=== PATIENT | male | born 1995 | race African-American/Black ===

== ENCOUNTER 2017-06-05 11:54 | Emergency (ER) | payer SELFPAY ==
[2017-06-05 12:00] VITALS: BP 149/79; PULSE 97; TEMP 98; BMI 28.1
[2017-06-05] MEDS ORDERED: CYCLOBENZAPRINE HCL 10 MG TABLET (FP) PO ONE (12:53)
[2017-06-05] MEDS ORDERED: KETOROLAC TROMETHAMINE 60 MG/2 ML VIAL IM ONE (12:53)
--- NOTE | 2017-06-05 12:54 | PDOC ---
History of Present Illness - General Chief Complaint: Back Pain Stated Complaint: BACK PAIN Time Seen by Provider: 06/05/17 12:14 History Source: Patient Exam Limitations: No Limitations - History of Present Illness Initial Comments: 06/05/17 13:05 Patient is a 22-year-old male with no past medical history presents to the emergency department today complaining of back pain. Patient states that he was playing basketball approximately one week ago when he jumped to block a shot. When he came down he felt a "twinge "in his back. Since then the pain has gotten slightly worse and she now feels pain down his left leg. The pain down his leg had him concerned so he presented to the emergency department today for evaluation. Denies fevers, chills, numbness and tingling, loss of bladder or bowel function, gait changes and weakness. Past History - Travel Traveled outside of the country in the last 30 days: No Close contact w/someone who was outside of country & ill: No - Past Medical History Allergies/Adverse Reactions: Allergies Allergy/AdvReac Type Severity Reaction Status Date / Time No Known Allergies Allergy Verified 06/05/17 12:00 Home Medications: Ambulatory Orders No Home Medications 0 dose .ROUTE UTDICT 09/15/12 Cyclobenzaprine HCl 5 mg PO HS #7 tablet 06/05/17 Ibuprofen 600 mg PO TID #21 tablet 06/05/17 Other medical history: NONE - Suicide/Smoking/Psychosocial Hx Smoking Status: No Smoking History: Never smoked Number of Cigarettes Smoked Daily: 0 Hx Alcohol Use: No Drug/Substance Use Hx: No Substance Use Type: None Review of Systems - Review of Systems Able to Perform ROS?: Yes Comments:: 06/05/17 12:53 CONSTITUTIONAL: Absent: fever, chills, diaphoresis, generalized weakness, malaise, loss of appetite HEENT: Absent: rhinorrhea, nasal congestion, throat pain, throat swelling, difficulty swallowing, mouth swelling, ear pain, eye pain, visual changes CARDIOVASCULAR: Absent: chest pain, loss of consciousness, palpitations, irregular heart rate, peripheral edema RESPIRATORY: Absent: cough, shortness of breath, dyspnea with exertion, orthopnea, wheezing, stridor, hemoptysis GASTROINTESTINAL: Absent: abdominal pain, abdominal distension, nausea, vomiting, diarrhea, constipation, melena, hematochezia GENITOURINARY: Absent: dysuria, frequency, urgency, hesitancy, hematuria, flank pain, genital pain, bowel/bladder incontinence. MUSCULOSKELETAL: (+) left sided back pain with left buttocks pain. Absent: myalgia, arthralgia, joint swelling SKIN: Absent: rash, itching, pallor HEMATOLOGIC/IMMUNOLOGIC: Absent: easy bleeding, easy bruising, lymphadenopathy, frequent infections ENDOCRINE: Absent: unexplained weight gain, unexplained weight loss, heat intolerance, cold intolerance NEUROLOGIC: Absent: headache, focal weakness or paresthesias, dizziness, unsteady gait, seizure, mental status changes, bladder or bowel incontinence PSYCHIATRIC: Absent: anxiety, depression, suicidal or homicidal ideation, hallucinations. Is the patient limited French proficient: No *Physical Exam - Vital Signs Last Vital Signs Temp Pulse Resp BP Pulse Ox 98.0 F 97 H 20 149/79 99 06/05/17 11:55 06/05/17 11:55 06/05/17 11:55 06/05/17 11:55 06/05/17 11:55 - Physical Exam Comments: 06/05/17 12:53 GENERAL: Well developed, well nourished. Awake and alert. No acute distress. HEENT: Normocephalic, atraumatic. PERRLA, EOMI. No conjunctival pallor. Sclera are non- icteric. Moist mucous membranes. Oropharynx is clear. NECK: Supple. Full ROM. No JVD. Carotid pulses 2+ and symmetric, without bruits. No thyromegaly. No lymphadenopathy. CARDIOVASCULAR: Regular rate and rhythm. No murmurs, rubs, or gallops. Distal pulses are 2+ and symmetric. PULMONARY: No evidence of respiratory distress. Lungs clear to auscultation bilaterally. No wheezing, rales or rhonchi. ABDOMINAL: Soft. Non-tender. Non-distended. No rebound or guarding. No organomegaly. Normoactive bowel sounds. MUSCULOSKELETAL TTP of left lower back. No midline tenderness. (+) flip test. Normal range of motion at all joints. No bony deformities or tenderness. No CVA tenderness. EXTREMITIES: No cyanosis. No clubbing. No edema. No calf tenderness. SKIN: Warm and dry. Normal capillary refill. No rashes. No jaundice. NEUROLOGICAL: Alert, awake, appropriate. Cranial nerves 2-12 intact. No deficits to light touch and temperature in face, upper extremities and lower extremities. No motor deficits in the in face, upper extremities and lower extremities. Normoreflexic in the upper and lower extremities. Normal speech. Toes are down- going bilaterally. Gait is normal without ataxia. PSYCHIATRIC: Cooperative. Good eye contact. Appropriate mood and affect. Medical Decision Making - Medical Decision Making 06/05/17 13:11 Patient is a 22-year-old male with no past medical history presents to the emergency department today complaining of back pain. Physical exam shows no red flags, no red flags on history. We will treat with Toradol and Flexeril at this time. Patient instructed to avoid heavy lifting for the next few days. We will discharge home at this time with ibuprofen and Flexeril. Patient given return precautions and understands all discharge instructions. *DC/Admit/Observation/Transfer Diagnosis at time of Disposition: Back pain Qualifiers: Back pain location: low back pain Chronicity: acute Back pain laterality: left Sciatica presence: with sciatica Sciatica laterality: sciatica of left side Qualified Code(s): M54.42 - Lumbago with sciatica, left side - Discharge Dispostion Disposition: HOME Condition at time of disposition: Improved Admit: No - Prescriptions Prescriptions: Cyclobenzaprine HCl 5 mg PO HS #7 tablet Ibuprofen 600 mg PO TID #21 tablet - Referrals Referrals: Al Dougherty MD [Staff Physician] - Maik Buitrago MD [Staff Physician] - - Patient Instructions Printed Discharge Instructions: DI for Low Back Pain Additional Instructions: You have low back pain. Take ibuprofen 600mg three times a day, not to exceed 3, 000mg a day. You may also take cyclobenzaprine (muscle relaxer). Do not drive after taking this medication as it may make you sleepy. You may use a heating pack or ice pack to help with your symptoms. Follow up with orthopedics in one week if your symptoms to not resolve. Return to the ED if you have worsening pain, numbness and tingling down the leg , loss of bladder or bowel control, or have any changes in your symptoms.
[2017-06-05] MEDS ORDERED: CYCLOBENZAPRINE HCL 10 MG TABLET (FP) ONE (12:58)
[2017-06-05] MEDS ORDERED: KETOROLAC TROMETHAMINE 60 MG/2 ML VIAL ONE (12:58)
== END 2017-06-05 13:08 | disposition home or self-care (01) ==
LOC: JERFT 11:54
PROC: 3E0233Z Introduction of Anti-inflammatory into Muscle, Percutaneous Approach (ICD-10-PCS; principal; 2017-06-05)
DX: M54.42 Lumbago with sciatica, left side (principal); X50.1XXA Overexertion from prolonged static or awkward postures, initial encounter; Y93.67 Activity, basketball; Y92.310 Basketball court as the place of occurrence of the external cause; Y99.8 Other external cause status
CPT/HCPCS: 99281-25

== ENCOUNTER 2022-02-10 04:20 | Emergency (ER) | payer OTHER ==
[2022-02-10 04:59] VITALS: TEMP 98.4; BMI 28.0
[2022-02-10] MEDS ORDERED: ACETAMINOPHEN 325 MG TABLET (FP) PO ONE (04:59)
[2022-02-10] MEDS ORDERED: ACETAMINOPHEN 325 MG TABLET (FP) ONE (05:44)
[2022-02-10 06:06] LABS: BASO % 0.3 % (0-2.0); EOS % 1.4 % (0-4.5); HEMATOCRIT 40.9 % (35.4-49); HEMOGLOBIN 13.8 GM/dL (11.7-16.9); LYMPH % 13.9 % (8-40); MCHC 33.8 g/dl (32.0-35.9); MEAN CELL VOLUME 88.7 fl (80-96); MEAN PLT VOLUME 8.9 fl (7.5-11.1); MONO % 6.8 % (3.8-10.2); NEUT % 77.6 % (42.8-82.8); PLATELET COUNT 209 10^3/uL (134-434); RBC 4.61 M/mm3 (4.00-5.60); WHITE BLOOD COUNT 10.7 K/mm3 (4.0-10.0)
[2022-02-10 06:36] LABS: BLOOD UREA NITROGEN 15.7 mg/dL (7-18)
[2022-02-10 06:38] LABS: CREATININE 0.8 mg/dL (0.55-1.3)
[2022-02-10 06:40] LABS: BILIRUBIN,TOTAL 0.5 mg/dL (0.2-1)
[2022-02-10 06:41] LABS: TOT PROT 7.2 g/dl (6.4-8.2)
[2022-02-10] MEDS ORDERED: POTASSIUM CHLORIDE TABS 20 MEQ TABLET.ER (FP) PO ONE ×2 (06:58→09:17)
[2022-02-10 10:39] VITALS: BP 135/79; PULSE 61
== END 2022-02-10 10:20 | disposition home or self-care (01) ==
LOC: JER 04:20
DX: R07.9 Chest pain, unspecified (principal)
CPT/HCPCS: 36415; 71046-TC-FY; 80053; 83735; 84484; 85025; 93005; 93010; 99285-25